=== PATIENT | male | born 1955 | race Caucasian/White ===

== ENCOUNTER → 2023-11-20 10:52 | Outpatient (REF) | payer MEDICARE, SELFPAY | LOC: HWRAD 10:52 | PROVIDERS: ATTENDING PHYSICIAN Internal Medicine Geriatric Medicine | DX: Z12.11 Encounter for screening for malignant neoplasm of colon (principal) | CPT/HCPCS: 74261 ==

== ENCOUNTER 2024-12-04 13:02 | Inpatient (IN) | payer MEDICARE, SELFPAY ==
[2024-12-04] VITALS (30 sets, daily range): BP systolic 89–120; BP diastolic 67–99; BMI 37.8
--- NOTE | 2024-12-04 10:23 | ED.GENMED ---
History of Present Illness
General
Chief Complaint: Breathing Problem
Time Seen by Provider: 12/04/24 10:07
History of Present Illness
History of Present Illness:
68-year-old male who presents to the emergency department for evaluation of heart palpitations and shortness of breath ongoing for the past week. Symptoms seem to be worsening and he notes that he cannot lay flat or on his left side. Denies any
chest pain. No fevers or chills. No prior cardiac history, notes that prior to undergoing orthopedic surgery in April he had a stress test performed in [facility] that was unremarkable. Denies any recent fevers or chills. Denies leg edema
Past History
Past History
ED Past Medical History: None
Social History
Tobacco: Non-smoker
Personal:
Living: with family
Employment: Employed
Review of Systems
Review of Systems
Allergies reviewed?: Yes
All Other Systems: ROS reviewed and negative except as documented in HPI and ROS
Phy Exam
Physical Exam
Physical Exam:
GEN: Well appearing, NAD, WDWN
Eyes: PERRLA, EOMs intact, no scleral icterus
HENT: NCAT, oral mucosa moist, no JVD
Lungs: Mildly tachypneic, no respiratory distress, grossly diminished right breath sounds
Cardiac: Markedly tachycardic and irregular, no murmur
Abdomen: S, NT, ND, NABS, no masses or hepatosplenomegaly
Neuro: AO x 3
MSK: No gross deformity or ecchymosis. No edema. No digital clubbing
Skin: No rashes, petechiae. Normal color, no pallor or jaundice.
Psych: Calm, cooperative, proper hygiene
Scores
Heart Failure Risk
Heart Failure Risk Score: Not Applicable
Course
Orders/Labs/Results
Orders:
Orders
12/04/24 10:00
Electrocardiogram (*1) Urgent
Reason for Study: Shortness of Breath
EKG- Treatment ONCE
12/04/24 10:18
Complete Blood Count/With Diff Urgent
Comprehensive Metabolic Panel Urgent
Magnesium Urgent
Comment: ADD ON
NT-proBNP Urgent
Comment: ADD ON
TSH Reflex To Free T4 Urgent
Comment: ADD ON
Troponin I Urgent
12/04/24 10:20
Add On- LAB Urgent
Tests Added?: BNP
Diltiazem HCl [Cardizem] 25 mg IV NOW STA
CR Chest Portable - 1 View Urgent
Comment:
Reason For Exam: SOB
Reason Study Needs to be Portable: Patient Unstable
12/04/24 10:24
PTT Urgent
Prothrombin Time Urgent
12/04/24 10:30
Diltiazem 125 mg/125 ml Nss [Cardizem] 125 mg in 125 ml IV PER PROTOCOL
Initial dose in mg/hr, then titrate:: 5
Titrate to keep:: Heart rate 80-100 bpm
Titrate by mg/hr:: 5 mg/hr
Frequency of titrations (minutes):: 15
Maximum dose in mg/hr:: 15
12/04/24 10:45
Add On- LAB Urgent
Tests Added?: magnesium, TSH w reflex
12/04/24 11:42
Heparin 4,000 units IV NOW STA
12/04/24 11:[address] Non Medication Order As Directed
Physician Order: PTT 6 hours after initial start of Heparin infusion
Above order entered?: Yes
12/04/24 11:45
Heparin 67010 Units/250 ml 25,000 units in 250 ml IV PER PROTOCOL
Weight to be used for heparin protocol in kilograms (kg):: 129.8
Protocol:: Cardiac Tx/Acute Coronary
PTT Goal Range to be used:: PTT 73 to 111 seconds
Order type:: Initial
INITIAL Infusion Dose (UNITS/KG/hr) & then follow protocol:: 15 units/kg/hr
Infusion Dose in UNITS/hr & then follow protocol (UNITS/hr):: 1,500
INFUSION RATE in mL/hr & then follow protocol (mL/hr):: 15
PTT less than or equal to 64 seconds:: Increase rate by 200 units/hr (+ 2 mL/hr)
PTT 64.1 to 72.9 seconds:: Increase rate by 100 units/hr (+ 1 mL/hr)
PTT 73 to 111 seconds:: Target Range. No change in rate.
PTT 111.1 to 130.9 seconds:: Decrease rate by 100 units/hr (- 1 mL/hr)
PTT 131 to 199.9 seconds:: HOLD for 1 hr. Then decrease rate by 200 units/hr (- 2 mL/hr)
PTT greater than or equal to 200 seconds:: HOLD for 2 hrs & Notify Provider. Then decrease by 200 units/hr (-
2 mL/hr)
Lab follow-up:: Each change, PTT q6h until 2 consecutive are therapeutic. Then PTT
daily.
12/04/24 12:24
Admit/Transfer Patient As Directed
Co-Sign Provider:
Level of Care: Inpatient admission
Assign to:: IMU- Intermediate Care
Physician / Group: deborahy
Diagnosis: New onset fast AF, R pleura effusion
Reason for Hospitalization: New onset fast AF, R pleura effusion
Expected length of stay greater than two midnights?: Yes
ELOS- Estimated Length of Stay in days: 3
I certify the patient meets the requirements for IP care: Yes
12/04/24 12:28
Code Status As Directed
Resuscitation Status: Full Code
Abnormal Lab Results
12/04/24
10:18
MPV 11.3 H fL
(7.4-10.4)
Absolute Monos (auto) 0.9 H 10^3/uL
(0.1-0.6)
Monocytes % 9.7 H %
(1.7-9.3)
Glucose 139 H mg/dl
(70-99)
Total Bilirubin 1.9 H mg/dl
(0.2-1.3)
12/04/24 10:18
12/04/24 10:18
Vital Signs
Initial and Last Documented VS:
Initial Vital Signs
Temp Pulse Resp BP Pulse Ox
98.2 F 66 16 112/84 97
12/04/24 09:57 12/04/24 09:57 12/04/24 09:57 12/04/24 09:57 12/04/24 09:57
Last Documented Vital Signs
Temp Pulse Resp BP Pulse Ox
98.2 F 134 23 89/75 93
12/04/24 09:57 12/04/24 11:45 12/04/24 11:45 12/04/24 11:30 12/04/24 11:45
MDM/Problems Addressed
MDM/Problems Addressed:
68-year-old male presenting with shortness of breath and palpitations found to have rapid atrial fibrillation with signs of CHF evidenced by mild lower extremity edema and a moderate right pleural effusion. He was started on IV rate control with
modest improvement however blood pressure was tenuous, patient daisy stable during this time. He has no chest pain to suggest ACS. Ultimately given A-fib with signs of heart failure he will require hospitalization for further rate control and
thoracentesis, opted for heparinization as opposed to oral anticoagulants given anticipation of upcoming procedure.
Comment
Comment:
EKG independently interpreted by me shows a rapid atrial fibrillation at a rate of [address] depressions more prominent laterally
*Pulse Oximetry
SaO2: 97
Oxygen Mode of Delivery: Room air
Patient hypoxic: no
*Critical Care Note
Total Time (30-74mins, 75-104mins- exclusive of procedures): 45 minutes
comment:
Critical care time: 45 minutes
Critical care time was exclusive of: Separately billable procedures, treating other patients, and teaching time
Critical care was necessary to treat or prevent imminent or life-threatening deterioration of the following conditions: Rapid A-fib/CHF
Critical care time spent personally by me on the following activities:
[x] Review of old charts
[x] Obtaining history from patient or surrogate
[x] Ordering and review of the laboratory studies
[x] Ordering and review of radiographic studies
[x] Ordering and performing treatments and interventions
[x] Patient patient's response to treatment
[x] Development of treatment plan with patient or surrogate
ED Attending Note
-
Portions of this chart may have been created with voice recognition software.� Occasional wrong word or��sound alike� substitutions may have occurred due to the inherent limitations of voice recognition software.
Discharge Plan
Departure
Patient Disposition: Admit
Date of Disposition: 12/04/24
Time of Disposition: 11:43
Admit to: IMU
Presentation/result/management discussed w/ accepting MD/DO: Hospitalist
Discharge Problem:
Atrial fibrillation with RVR, Pleural effusion
Interventions
Interventions:
*Risk Screen - Suicide Last Done: 12/04/24 09:59
*Neglect/Abuse Screening Last Done: 12/04/24 09:59
ED- Cardiac Assessment Last Done: 12/04/24 10:49
ED- Pulmonary Assessment Last Done: 12/04/24 10:49
[2024-12-04] MEDS: CARDIZEM 25 MG IV (10:27)
[2024-12-04 10:40] LABS: ALT (SGPT) 36 U/L (0-50); AST (SGOT) 38 U/L (17-59); Albumin 4.7 g/dl (3.5-5.0); Alkaline Phosphatase 98 U/L (38-126); Blood Urea Nitrogen 19 mg/dl (9-20); Calcium 9.7 mg/dl (8.4-10.2); Carbon Dioxide 23 mmol/L (22-30); Chloride 107 mmol/L (98-107); Glucose 139 mg/dl (70-99); Potassium 4.7 mmol/L (3.5-5.1); Total Protein 7.3 g/dl (6.3-8.2); eGFR > 60.00
[2024-12-04] MEDS: CARDIZEM 125 IV ×2 (10:41→20:00)
[2024-12-04 10:43] LABS: Hematocrit 51.1 % (39.0-52.0); Hemoglobin 16.9 g/dL (13.0-18.0); Mean Corp Hgb Conc. 33.1 g/dL (33.0-37.0); Mean Corpuscular Volume 85.5 fL (80.0-94.0); Nucleated Red Blood Cells % 0 % (-); Platelet Count 358 10^3/uL (130-400); Red Cell Dist. Width 13.5 % (11.5-14.5)
[2024-12-04 10:44] LABS: INR 1.07; PT 14.4 Sec (11.4-14.6)
[2024-12-04 10:45] LABS: Sodium 140 mmol/L (135-145)
[2024-12-04 10:45] LABS: APTT 29.5 Sec (23.4-35.0)
[2024-12-04 10:58] LABS: Troponin I 0.015 ng/ml
[2024-12-04 11:08] LABS: Magnesium 2.1 mg/dl (1.6-2.3)
--- NOTE | 2024-12-04 12:14 | HPS.HSE ---
Family Physician
-
Family Physician: Gregory Macias
Chief Complaint
-
palpitation and sob
History of Present Illness
68M HX HTN sen at ER:
- no prior visit to
- for evaluation of heart palpitations and shortness of breath ongoing for the past week.
- Symptoms seem to be worsening and he notes that he cannot lay flat or on his left side.
- No prior cardiac history,
- reports prior to undergoing orthopedic surgery in April he had a stress test performed in [facility] that was unremarkable.
- Denies any chest pain.
- No fevers or chills. Denies any recent fevers or chills. Denies leg edema
Medical History
Past Medical History
Past Medical History: Reports HTN
Additional Past Medical History:
Reports unremarkable preop stress test in April 2024 in [facility]
Past Surgical History: Reports Orthopedic
Social History
Tobacco: Non-smoker
Alcohol: Other (reports not more than socially, and drinks less and less )
Personal:
Living: With Family
Family History
Family History: Not pertinent
Allergies / Home Medications
Allergies reflects when Allergies were last updated in [employer]
Home Medications with original date entered in [employer]
Allergy/Medication List:
Allergies
Allergy/AdvReac Type Severity Reaction Status Date / Time
No Known Allergies Allergy Verified 10/13/13 15:36
Home Medications
amlodipine 5 mg tablet (Norvasc) 5 mg PO DAILY 12/04/24
aspirin 81 mg tablet,delayed release 81 mg PO DAILYPRN PRN chest pains 12/04/24
tadalafil 5 mg tablet 5 mg PO DAILY 12/04/24
Review of Systems
-
Constitutional: Reports No Symptoms
EENT: Reports No Symptoms
Respiratory: Reports Trouble Breathing (when lying on the Lt )
Cardiac: Reports Palpitations
Abdomen/GI: Reports No Symptoms
: Reports No Symptoms
Musculoskeletal: Reports No Symptoms
Skin: Reports No Symptoms
Neurological: Reports No Symptoms
Endocrine: Reports No Symptoms
Hematologic/Lymphatic: Reports No Symptoms
Psych: Reports No Symptoms
Physical Exam
Vital Signs
Vital Signs
Temp Pulse Resp BP Pulse Ox
98.2 F 134 23 89/75 93
12/04/24 09:57 12/04/24 11:45 12/04/24 11:45 12/04/24 11:30 12/04/24 11:45
Physical Exam
General: Well Developed, Well Nourished and No Apparent Distress
HEENT: NormoCephalic, Moist mucous membranes and Atraumatic
Respiratory: Other (Mildly tachypneic, no respiratory distress, grossly diminished right breath sounds)
Cardiac: S1/S2, Irregular Rhythm and Tachycardia; No Murmur or Rub
GI: Soft, Non Tender, Non Distended and Normal Bowel Sounds; No Organomegaly
Rectal: Deferred by Provider
Musculoskeletal: No Clubbing, No Cyanosis and No Edema
Skin: No Rash
Neuro: Nonfocal/grossly intact
Psych: Calm and Intact Judgment/Insight
Laboratory Results
-
12/04/24 10:18
12/04/24 10:18
Laboratory Results
PT 14.4 Sec (11.4-14.6) 12/04/24 10:24
INR 1.07 12/04/24 10:24
APTT 29.5 Sec (23.4-35.0) 12/04/24 10:24
Total Bilirubin 1.9 mg/dl (0.2-1.3) H 12/04/24 10:18
AST 38 U/L (17-59) 12/04/24 10:18
ALT 36 U/L (0-50) 12/04/24 10:18
Alkaline Phosphatase 98 U/L (38-126) 12/04/24 10:18
Troponin I 0.015 ng/ml 12/04/24 10:18
Data Reviewed
-
Diagnostic Radiology: Report Reviewed by me
Medical Tests (Nuc Med, Echo, EKG etc): Report Reviewed by me
Lab Data: Labs Reviewed by me
Impression/Plan
-
Relevant data
Unremarkable CBC
Nl Cr, nl eGFR
INR1.0
TB 1.9
Pending TSH
CXR
- Low lung volumes
- small to moderate right-sided pleural effusion
- some adjacent airspace consolidation/atelectasis.
- Top normal to mildly enlarged heart.
EKG
ATRIAL FIBRILLATION WITH RAPID VENTRICULAR RESPONSE
LEFT ANTERIOR FASCICULAR BLOCK
NONSPECIFIC ST AND T WAVE ABNORMALITY
ABNORMAL ECG
NO PREVIOUS ECGS AVAILABLE
Confirmed by MD YEIMI, PROSPER Loredo ([id number]) on 12/04/2024 10:35:55 AM
Last hospitalist admission:
ASSESSMENT & PLAN
New onset Fast AF with VR 110-125
- BP borderline at 90/75
- appears stable clinically however.
- Hold Amlodipine
- agree with Cardizem gtt to titrate
- agree with Heparin gtt
- on ASA will cont.
- TSH
- ECHO
- CBC card consult
Moderate R pleural effusion
some adjacent airspace consolidation/atelectasis
- afebrile & normal WCC - low suspicion for PNAupon admission
- suspect symptomatic
- proBNP
- will need thoracentesis ( Dxtic and Rxtic )
Currently borderline hypotension
Benign HTN
- Hold Amlodipine
Elevated TB and nl INR
- suspect passive hepatic venous congestion due to ? CHF
- To eval for acute CHF - await pro BNP asnd ECHO
DVT Px: on Heparin gtt
Full code
IMU
[2024-12-04] MEDS: HEPARIN 4000 UNITS IV (12:54)
[2024-12-04] MEDS: HEPARIN 25000 UNITS/250 ML IV (13:02)
--- NOTE | 2024-12-04 13:20 | CON.CAR ---
Addendum entered and electronically signed by Delbert Crisostomo MD 12/04/24 17:37:
I saw and examined the patient.
The ROOFER VINYL COATING's note was reviewed and I agree with the note.
Comment: JOHN ANAYA DCCV in AM, NPO after midngiht, TSH normal
Original Note:
Consultation
Consultation Request
Date/Time Consultation Requested: 12/04/24 1309
Date/Time Consultation Performed: 12/04/24 1330
Requesting Provider: Dr. Gresham
Performing Provider: Ann Marie VEGA for Dr. Crisostomo
Reason for Consultation: AFIB
Medical History
-
Chief Complaint: SOB, palps
History of Present Illness:
68 y/o male with hypertension who is here for evaluation SOB for several weeks, which has been getting progressively worse. Worse with exertion, and laying flat. He felt palpitations overnight. He is seen to have AFIB with RVR and is ordered
diltiazem and heparin drips. He has a right pleural effusion and is ordered for a thoracentesis (diagnostic and therapeutic). He is in no distress at the time of my assessment.
Past Medical History
Past Medical History: HTN
Social History
Tobacco: Former Smoker
Alcohol: Occasional
Drug: None
Family History
Family History: Reviewed & Not Pertinent
Allergies / Home Medications
Allergy/AdvReac Type Severity Reaction Status Date / Time
No Known Allergies Allergy Verified 10/13/13 15:36
�Medication �Instructions �Recorded �Confirmed �Type
amlodipine 5 mg tablet (Norvasc) 5 mg PO DAILY 12/04/24 12/04/24 History
aspirin 81 mg tablet,delayed 81 mg PO DAILYPRN PRN chest pains 12/04/24 12/04/24 History
release
tadalafil 5 mg tablet 5 mg PO DAILY 12/04/24 12/04/24 History
Review of Systems
-
History Source: Patient
All other systems: Negative unless noted
Respiratory: Trouble Breathing
Cardiac: Palpitations
Physical Exam
Vital Signs
Temp Pulse Resp BP Pulse Ox
98.2 F 134 23 89/75 93
12/04/24 09:57 12/04/24 11:45 12/04/24 11:45 12/04/24 11:30 12/04/24 11:45
Lab Results
12/04/24 10:18
12/04/24 10:18
Troponin I 0.015 ng/ml 12/04/24 10:18
Tir-F-Qudnfspuhzt Pept 2800 pg/ml 12/04/24 10:18
Physical Exam
General: Well Developed, Well Nourished and No Apparent Distress
HEENT: Normocephalic and Anicteric
Respiratory: Other (diminished to right base)
Cardiac: Irregular Rhythm
Musculoskeletal: No Edema
Skin: Warm and Dry
Neuro: AO x 3
Psych: Calm
Impression / Plan
-
AFIB with RVR:
-continue IV diltiazem, which requires intensive monitoring. Most recent SBP 111 mmHg.
-plan for JOHN/CV in AM- discussed with patient
-[id number] score is at least 2 for age and HTN. Continue IV heparin, which requires intensive monitoring. Transition to [facility] prior to d/c- check pricing with .
-echo ordered, needs sleep study as OP
-TSH WNL
Right pleural effusion:
-thoracentesis is planned (diagnostic/therapeutic).
HTN:
-replace amlodipine with diltiazem
-monitor on drip
Data Reviewed
-
EKG: Tracing Personally Visualized and interpreted (AFIB with RVR 157 BPM, non specific ST/T abnormality)
Radiology: Report Reviewed by me (CXR: Low lung volumes with small to moderate right-sided pleural effusion with some adjacent airspace consolidation/atelectasis. Top normal to mildly enlarged heart.)
Medical Tests (Nuc Med, Echo etc): Other (echo ordered)
Labs: Labs Reviewed by me
[2024-12-04 20:02] LABS: Hematocrit 46.9 % (39.0-52.0)
[2024-12-04 20:12] LABS: APTT 80.9 Sec (23.4-35.0)
[2024-12-04 20:47] LABS: Glucose 161 mg/dl (70-99); LDH 226 U/L (120-246); Total Protein 6.8 g/dl (6.3-8.2)
[2024-12-05] VITALS (17 sets, daily range): BP systolic 90–118; BP diastolic 73–93; BMI 35.1
[2024-12-05 03:09] LABS: Hematocrit 43.0 % (39.0-52.0); Hemoglobin 14.5 g/dL (13.0-18.0); Mean Corp Hgb Conc. 33.7 g/dL (33.0-37.0); Mean Corpuscular Volume 84.3 fL (80.0-94.0); Platelet Count 254 10^3/uL (130-400); Red Cell Dist. Width 13.4 % (11.5-14.5)
[2024-12-05 03:23] LABS: APTT 72.6 Sec (23.4-35.0)
[2024-12-05 03:28] LABS: Blood Urea Nitrogen 21 mg/dl (9-20); Calcium 9.1 mg/dl (8.4-10.2); Carbon Dioxide 23 mmol/L (22-30); Chloride 111 mmol/L (98-107); Estimated Creatinine Clearance 111 ml/min; Glucose 115 mg/dl (70-99); HDL Cholesterol 35 mg/dl; LDL Cholesterol, Calculated 83 mg/dl; Potassium 3.9 mmol/L (3.5-5.1); Sodium 138 mmol/L (135-145); Very Low Density Lipoprotein 20 mg/dl (0-30); eGFR > 60.00
[2024-12-05] MEDS: CARDIZEM 125 IV ×3 (03:49→20:55)
[2024-12-05] MEDS: HEPARIN 25000 UNITS/250 ML IV ×2 (05:15→21:40)
--- NOTE | 2024-12-05 08:15 | W.PN.CD ---
Today's Communication / Plan
-
Patient scheduled for thoracentesis this morning
Will need to make sure he does okay with this procedure. Will hold off on JOHN cardioversion this morning. -plan for JOHN/CV this admission. Patient getting thoracentesis earlier this morning so we will be holding off on JOHN cardioversion. This
was reviewed with primary team and reviewed with team performing JOHN today and plan will be thoracentesis today with JOHN cardioversion tomorrow
If patient does well with thoracentesis then can transition from IV heparin to Eliquis 5 mg twice daily. Will need to have case management check cost
Also can transition IV Cardizem to oral
Impression / Plan
-
AFIB with RVR:
-continue IV diltiazem, which requires intensive monitoring. Most recent SBP 111 mmHg.
-plan for JOHN/CV this admission. Patient getting thoracentesis earlier this morning so we will be holding off on JOHN cardioversion. This was reviewed with primary team and reviewed with team performing JOHN today and plan will be thoracentesis
today with JOHN cardioversion tomorrow
-[id number] score is at least 2 for age and HTN. Continue IV heparin, which requires intensive monitoring. Transition to Eliquis prior to d/c- check pricing with .
-echo ordered, needs sleep study as OP
-TSH WNL
Right pleural effusion:
-thoracentesis is planned (diagnostic/therapeutic).
HTN:
-replace amlodipine with diltiazem
-monitor on drip
Physical Exam
Vital Signs/Labs
Vital Signs
Temp Pulse Resp BP Pulse Ox
97.8 F 85 17 110/79 90
12/04/24 16:30 12/05/24 07:30 12/05/24 07:30 12/05/24 07:01 12/05/24 00:15
12/04/24 12/05/24 12/06/24
06:59 06:59 06:59
Actual Weight 130 kg
12/05/24 02:58
12/05/24 02:58
PT Cancelled 12/04/24 19:10
INR Cancelled 12/04/24 19:10
APTT 72.6 Sec (23.4-35.0) H 12/05/24 02:58
Magnesium 2.1 mg/dl (1.6-2.3) 12/04/24 10:18
Triglycerides 100 mg/dl (10-149) 12/05/24 02:58
LDL Cholesterol, Calc 83 mg/dl 12/05/24 02:58
VLDL Cholesterol, Calc 20 mg/dl (0-30) 12/05/24 02:58
HDL Cholesterol 35 mg/dl 12/05/24 02:58
12/04/24
10:18
Dvp-U-Mptvyhwvouc Pept 2800
LAB Results
12/04/24
10:18
Troponin I 0.015
Physical Exam
Constitutional: No acute distress
Cardiovascular: Rhythm/rate is irregular
Respiratory: Respiratory effort normal
GI: Soft
Neuro/Psych: Alert
Data Reviewed
-
Date of Service: December 05, 2024
Medical Decision Making: Reviewed Test Results
X-Ray/CT/US/MRI/NUC/PET: Report Reviewed by me
Medical Tests (PFT, Pathology etc): Report Reviewed by me
Labs: Labs Reviewed by me
[2024-12-05 09:46] LABS: APTT 106.4 Sec (23.4-35.0)
[2024-12-05 10:40] LABS: Body Fluid Second Tech SS
--- NOTE | 2024-12-05 12:34 | CM ---
Met with patient and spouse at bedside in the ED; CM consult completed
Pharmacy verified: [facility] @ [id number] [facility], [place], [place]
Patient and spouse live in a multilevel home; 2 steps to enter; 15 steps to 2nd floor bed and bath; railing on stairs; powder room 1st floor
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
No DME
No SNF utilization history; home PT after knee replacement 2023
Eliquis coupon for 30 day free trial provided (Attending notified and made aware that patient does not have medication coverage)
Drove self to hospital; will transport home if driving is restricted at time of discharge
Plan: discharge to home when medically stable; Trading Floor Operator will monitor for discharge needs
--- NOTE | 2024-12-05 12:51 | CARDSERVDEF ---
Echocardiogram with Definity completed after protocol screening completed. Allergies verified.
Patent IV site: _Right arm 20 G PC____
IV site flushed with 0.9% NaCl pre and post administration.
Diluted bolus method utilized to enhance visualization of ventricular patton.
Total volume given: __2.5__ mL
Patient tolerated all procedures well without complications.
--- NOTE | 2024-12-05 13:18 | W.PN.HOSP.TC ---
Today's Communication/Plan
-
thora
cardioversion tomorrow
cont dilt ggt, hep ggt
Assessment / Plan
Assessment / Plan
Physical Exam
General: Well Developed, Well Nourished and No Apparent Distress
HEENT: NormoCephalic, Moist mucous membranes and Atraumatic
Respirator NAD
Cardiac: S1/S2, Irregular Rhythm and Tachycardia; No Murmur or Rub
GI: Soft, Non Tender, Non Distended and Normal Bowel Sounds; No Organomegaly
Rectal: Deferred by Provider
Musculoskeletal: No Clubbing, No Cyanosis and No Edema
Skin: No Rash
Neuro: Nonfocal/grossly intact
Psych: Calm and Intact Judgment/Insight
Afib with RVR
-Cont Dilt ggt
-Hep ggt
- Hold Amlodipine
- on ASA will cont.
- TSH WNL
- ECHO
- Tentative cardioversion tomorrow am
Moderate R pleural effusion
some adjacent airspace consolidation/atelectasis
- suspect 2/2 to afib
-Lights indicates most likely transudative effusion
-afebrile & normal WCC - low suspicion for PNAupon admission
- suspect symptomatic
- improved with thora
-F/u ECHO
Currently borderline hypotension
Benign HTN
- Hold Amlodipine
Elevated Total bili
-mild, alp WNL
-no ruq pain
-most likely gilberts
-cont to trend
DVT Px: on Heparin gtt
Total time spent on today's encounter was 51 minutes which included time spent in counseling the patient/family regarding diagnosis and treatment plan as listed above, goals of care, and symptom management. Case was discussed with nursing staff,
specialists, and care coordinators/case management. All labs and imaging personally reviewed by me. Remainder the time spent in detailed review of previous records, lab data, imaging, and other medical provider documentation.
Anticipated Discharge: Today
Subjective/Interval History
-
Date of Service: December 05, 2024
respiratory status greatly improved s/p thora
Objective Data
-
Labs:
Laboratory Results
12/05/24 12/05/24 12/05/24
02:58 09:12 15:12
WBC 7.0
Hgb 14.5
Hct 43.0
Plt Count 254 D
APTT 72.6 H 106.4 H Pending
Sodium 138
Potassium 3.9
Chloride 111 H
Carbon Dioxide 23
BUN 21 H
Creatinine 0.9
Glucose 115 H
Calcium 9.1
Vital Signs:
Vital Signs
Temp Pulse Resp BP Pulse Ox
97.5 F 95 28 109/88 93
12/05/24 11:17 12/05/24 11:17 12/05/24 11:17 12/05/24 11:17 12/05/24 11:17
I&O
12/04/24 12/05/24 12/06/24
06:59 06:59 06:59
Intake Total 362 / 362
Output Total 600 / 600
Balance -238 / -238
Review of Systems
-
History Source: Patient
All other systems: Not reviewed unless documented
Data Reviewed
-
Diagnostic Radiology: Report Reviewed by me
Labs: Labs Reviewed by me
--- NOTE | 2024-12-05 13:45 | PTCARENOTE ---
Verbal report called to Arthur Prakash from IMU. awaiting clean bed. plan of care continues to be followed.
[2024-12-05 15:37] LABS: APTT 99.6 Sec (23.4-35.0)
--- NOTE | 2024-12-05 16:52 | W.PN.UPDATE ---
Addendum entered and electronically signed by Benjie Maynard MD 12/05/24 17:10:
Spoke with the brand engineer that the patient saw in [place]. Dr. Luciano Garrett. Patient had a normal echocardiogram 12/2024 normal left ventricular function and no significant valvular disease. Patient also had a Lexiscan nuclear perfusion stress
test with no nuclear perfusion evidence of ischemia and normal left ventricular function. Copy of reports being faxed
Original Note:
Update Note
Progress Note Update
echo with EF 25%. reviewed results with him. We discussed assessment for CAD Including cath vs noninvasice testing. reports normal echo and pharmachologic stress in [place] before he had knee surgery. Mónicaetn may ahve tachycardia induced cardiomyopathy
. Will obtain piror results . if he has had recent testing without CAD and normal LVF then we may not need to repeat evaluation for CAD. patient obtaining results.
--- NOTE | 2024-12-05 17:16 | PTCARENOTE ---
Pt arrived from ED. remains on Hep drip 1600 units, cardizem drip at 15mg/hr. Pt educated on NPO status after midnight for cardioversion tomorrow. AAO x3, stable on his feet
[2024-12-06] VITALS (15 sets, daily range): BP systolic 97–118; BP diastolic 56–89; BMI 35.1
[2024-12-06 06:28] LABS: Hematocrit 47.6 % (39.0-52.0); Hemoglobin 15.8 g/dL (13.0-18.0); Mean Corp Hgb Conc. 33.2 g/dL (33.0-37.0); Mean Corpuscular Volume 85.8 fL (80.0-94.0); Platelet Count 292 10^3/uL (130-400); Red Cell Dist. Width 13.2 % (11.5-14.5)
[2024-12-06 06:39] LABS: APTT 82.7 Sec (23.4-35.0)
[2024-12-06 06:56] LABS: ALT (SGPT) 28 U/L (0-50); AST (SGOT) 31 U/L (17-59); Albumin 4.4 g/dl (3.5-5.0); Alkaline Phosphatase 92 U/L (38-126); Blood Urea Nitrogen 17 mg/dl (9-20); Calcium 9.1 mg/dl (8.4-10.2); Carbon Dioxide 20 mmol/L (22-30); Chloride 107 mmol/L (98-107); Estimated Creatinine Clearance 96 ml/min; Glucose 128 mg/dl (70-99); Magnesium 2.1 mg/dl (1.6-2.3); Potassium 4.0 mmol/L (3.5-5.1); Sodium 139 mmol/L (135-145); Total Protein 6.9 g/dl (6.3-8.2); eGFR > 60.00
--- NOTE | 2024-12-06 07:18 | PTCARENOTE ---
No acute changes overnight. Denies any pain. Pt reports breathing improved since admission. No gi/gu complaints. NPO at [facility] this morning. Pt aware of procedures today; education provided on Heart cath/ JOHN/ CV. Call pope and tray table within
reach. pt calls appropriately.
[2024-12-06] MEDS: ELIQUIS 5 MG PO (08:25)
[2024-12-06] MEDS: CARDIZEM 125 IV (08:25)
--- NOTE | 2024-12-06 11:04 | PTCARENOTE ---
NPO status maintained, voided housing relocation. CHG bathed self. Remains in AF on tele rates 90s on IV Cardizem at 15mg/hr. To electrical laboratory technician via lucas sorensen/ [facility].
--- NOTE | 2024-12-06 12:18 | CM ---
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
--- NOTE | 2024-12-06 12:39 | W.PN.CD ---
Today's Communication / Plan
-
start Toprol XL and dabigatran
monitor BP post DCCV
Impression / Plan
-
AFIB with RVR: new
-back in sinus after DCCV
-now on Toprol
-CHADS2-VASC = 3. Dabigatran 150mg bid for OAC.
Cardiomyopathy, new, EF 20-25%
-recent stress with no ischemia
-likely tachy induced from A fib
-starting on Toprol XL
-meds will be limited by low BP and lack of prescription coverage
Moderate MR
HTN:
-BP now running low
-monitor on Torpol XL
Physical Exam
Vital Signs/Labs
Vital Signs
Temp Pulse Resp BP Pulse Ox
98.1 F 101 18 98/78 96
12/06/24 08:59 12/06/24 10:00 12/05/24 20:00 12/06/24 10:00 12/06/24 08:25
12/05/24 12/06/24 12/07/24
06:59 06:59 06:59
Actual Weight 130 kg 120.5 kg
12/06/24 06:07
12/06/24 06:07
PT Cancelled 12/04/24 19:10
INR Cancelled 12/04/24 19:10
APTT 82.7 Sec (23.4-35.0) H 12/06/24 06:07
Magnesium 2.1 mg/dl (1.6-2.3) 12/06/24 06:07
Triglycerides 100 mg/dl (10-149) 12/05/24 02:58
LDL Cholesterol, Calc 83 mg/dl 12/05/24 02:58
VLDL Cholesterol, Calc 20 mg/dl (0-30) 12/05/24 02:58
HDL Cholesterol 35 mg/dl 12/05/24 02:58
12/04/24
10:18
Iao-M-Oisbhxbgsqj Pept 2800
LAB Results
12/04/24
10:18
Troponin I 0.015
Physical Exam
Constitutional: No acute distress and Comfortable
EENT: Moist mucous membranes
Cardiovascular: Pedal edema is absent, JVD pressure is normal, Rhythm/rate is irregular and Systolic murmur present
Respiratory: Respiratory effort normal and Lungs clear to auscul.
Neuro/Psych: AO x 3
Data Reviewed
-
Date of Service: December 06, 2024
EKG: Other (Tele: A fib with RVR)
Labs: Labs Reviewed by me
--- NOTE | 2024-12-06 13:34 | PTCARENOTE ---
Returned from lab courier, ambulated to bed. BP 109/79 NSR 77 on tele. 98% on RAIR. Denies pain. IV Cardizem gtt was discontinued in procedure.
--- NOTE | 2024-12-06 14:43 | W.PN.HOSP.TC ---
Today's Communication/Plan
-
possible DC today after cardioversion
pradaxa
toprol
f/u cards, pcp outpatient
f/u bmp, cbc in 1 week
Assessment / Plan
Assessment / Plan
Physical Exam
General: Well Developed, Well Nourished and No Apparent Distress
HEENT: NormoCephalic, Moist mucous membranes and Atraumatic
Respirator NAD
Cardiac: S1/S2, Irregular Rhythm and Tachycardia; No Murmur or Rub
GI: Soft, Non Tender, Non Distended and Normal Bowel Sounds; No Organomegaly
Rectal: Deferred by Provider
Musculoskeletal: No Clubbing, No Cyanosis and No Edema
Skin: No Rash
Neuro: Nonfocal/grossly intact
Psych: Calm and Intact Judgment/Insight
Afib with RVR
-Cont Dilt ggt
-Hep ggt - Pradaxa on DC - 150mg bid for OAC.
- Hold Amlodipine
- on ASA will cont.
- TSH WNL
- ECHO - EF 25% - as per records - nuclear stress test negative
- Tentative cardioversion today
Moderate R pleural effusion
some adjacent airspace consolidation/atelectasis
Acute on Chronic HFrEF - EF 25%
-As per records - patient has known EF with nuclear stress test negative
-possibly related to tachycardia
-should benefit from repeat echo outpt
-Lights indicates most likely transudative effusion
-afebrile & normal WCC - low suspicion for PNAupon admission
- improved with thora
-Toprol
Currently borderline hypotension
Benign HTN
- Hold Amlodipine
Elevated Total bili
-mild, alp WNL
-no ruq pain
-most likely gilberts
-cont to trend
DVT Px: Pradaxa
More than 30 minutes spent in discharge including
Final examination of the patient
Summarizing hospital stay
Instructions for continuing care to all relevant caregivers
Preparation of discharge records, prescriptions, and referral forms
Total time spent (in minutes): 36
Anticipated Discharge: Today
Subjective/Interval History
-
Date of Service: December 06, 2024
Cardioversion
Objective Data
-
Labs:
Laboratory Results
12/06/24
06:07
WBC 10.5
Hgb 15.8
Hct 47.6
Plt Count 292
APTT 82.7 H
Sodium 139
Potassium 4.0
Chloride 107
Carbon Dioxide 20 L
BUN 17
Creatinine 1.0
Glucose 128 H
Calcium 9.1
Total Bilirubin 1.9 H
AST 31
ALT 28
Alkaline Phosphatase 92
Vital Signs:
Vital Signs
Temp Pulse Resp BP Pulse Ox
98.1 F 72 18 109/79 98
12/06/24 08:59 12/06/24 13:24 12/06/24 13:24 12/06/24 13:24 12/06/24 13:24
I&O
12/05/24 12/06/24 12/07/24
06:59 06:59 06:59
Intake Total 562 / 562
Output Total 600 / 600
Balance -38 / -38
Review of Systems
-
History Source: Patient
All other systems: Not reviewed unless documented
Data Reviewed
-
Diagnostic Radiology: Report Reviewed by me
Labs: Labs Reviewed by me
--- NOTE | 2024-12-06 19:10 | PTCARENOTE ---
Remains in NSR 70s. Tolerating po diet. Allowing to move around in room/ bathroom on own.
[2024-12-06] MEDS: PRADAXA 150 MG PO (19:46)
[2024-12-06] MEDS: TOPROL XL 25 MG PO (19:47)
[2024-12-07 03:33] LABS: Hematocrit 41.8 % (39.0-52.0); Hemoglobin 14.0 g/dL (13.0-18.0); Mean Corp Hgb Conc. 33.5 g/dL (33.0-37.0); Mean Corpuscular Volume 84.8 fL (80.0-94.0); Platelet Count 245 10^3/uL (130-400); Red Cell Dist. Width 13.4 % (11.5-14.5)
[2024-12-07 03:58] LABS: ALT (SGPT) 23 U/L (0-50); AST (SGOT) 26 U/L (17-59); Albumin 3.5 g/dl (3.5-5.0); Alkaline Phosphatase 73 U/L (38-126); Blood Urea Nitrogen 14 mg/dl (9-20); Calcium 8.5 mg/dl (8.4-10.2); Carbon Dioxide 23 mmol/L (22-30); Chloride 112 mmol/L (98-107); Estimated Creatinine Clearance 107 ml/min; Glucose 110 mg/dl (70-99); Magnesium 2.1 mg/dl (1.6-2.3); Potassium 4.1 mmol/L (3.5-5.1); Sodium 139 mmol/L (135-145); Total Protein 5.8 g/dl (6.3-8.2); eGFR > 60.00
[2024-12-07 05:31] VITALS: BP 100/74
[2024-12-07 05:36] VITALS: BP 100/74; BMI 35.0
[2024-12-07 08:01] VITALS: BP 108/83
[2024-12-07] MEDS: PRADAXA 150 MG PO (08:27)
[2024-12-07] MEDS: TOPROL XL 25 MG PO (08:28)
--- NOTE | 2024-12-07 09:09 | W.PN.CD ---
Today's Communication / Plan
-
-Would give morning metoprolol and if patient continues to tolerate with stable BP then would discharge on Toprol and then as outpatient we will see if we can initiate low-dose lisinopril. Will have patient follow-up in the office later this week
-I discussed with the patient checking daily weights blood pressure and heart rate if he gains greater than 2 pounds in a day or 5 pounds in a week then he should call. Will give a prescription for Lasix 20 mg as needed shortness of breath or
weight gain. I told him that we do not expect it will have to use this if he has significant weight gain and shortness of breath as noted above he can take Lasix but also will need to call our office.Continue Eliquis.
Aspirin has been discontinued
Impression / Plan
-
AFIB with RVR: new
-back in sinus after DCCV
-now on Toprol
-CHADS2-VASC = 3. Dabigatran 150mg bid for OAC.
Cardiomyopathy, new, EF 20-25%
-recent stress with no ischemia
-likely tachy induced from A fib
-starting on Toprol XL
-meds will be limited by low BP and lack of prescription coverage
- Recommended no alcohol with combination of cardiomyopathy and A-fib
- Appears to be tolerating Toprol. Limitations to additional medical therapy including lower blood pressure and prescription coverage coverage
-Would give morning metoprolol and if patient continues to tolerate with stable BP then would discharge on Toprol and then as outpatient we will see if we can initiate low-dose lisinopril. Will have patient follow-up in the office later this week
-I discussed with the patient checking daily weights blood pressure and heart rate if he gains greater than 2 pounds in a day or 5 pounds in a week then he should call. Will give a prescription for Lasix 20 mg as needed shortness of breath or
weight gain. I told him that we do not expect it will have to use this if he has significant weight gain and shortness of breath as noted above he can take Lasix but also will need to call our office.
.
Pleural effusion. Will monitor for recurrence. Hopefully with judaism of sinus rhythm and control of heart rates we will have lower likelihood of reaccumulation.
.
Moderate MR
HTN: Previously on them amlodipine which has been discontinued patient will not be restarting amlodipine. Patient currently with relatively low blood pressure
Physical Exam
Vital Signs/Labs
Vital Signs
Temp Pulse Resp BP Pulse Ox
97.6 F 66 22 100/74 96
12/07/24 07:55 12/07/24 06:00 12/06/24 20:00 12/07/24 05:36 12/06/24 20:01
12/06/24 12/07/24 12/08/24
06:59 06:59 06:59
Actual Weight 120.5 kg 120.4 kg
12/07/24 03:24
12/07/24 03:24
PT Cancelled 12/04/24 19:10
INR Cancelled 12/04/24 19:10
APTT 82.7 Sec (23.4-35.0) H 12/06/24 06:07
Magnesium 2.1 mg/dl (1.6-2.3) 12/07/24 03:24
Triglycerides 100 mg/dl (10-149) 12/05/24 02:58
LDL Cholesterol, Calc 83 mg/dl 12/05/24 02:58
VLDL Cholesterol, Calc 20 mg/dl (0-30) 12/05/24 02:58
HDL Cholesterol 35 mg/dl 12/05/24 02:58
12/04/24
10:18
Zzn-I-Ubzclrgqqcn Pept 2800
LAB Results
12/04/24
10:18
Troponin I 0.015
Physical Exam
Constitutional: No acute distress
Cardiovascular: Pedal edema is absent
Respiratory: Respiratory effort normal
GI: Soft and Non tender
Neuro/Psych: Alert and Oriented
Data Reviewed
-
Date of Service: December 07, 2024
Medical Decision Making: Reviewed Test Results
Medical Tests (PFT, Pathology etc): Report Reviewed by me
Labs: Labs Reviewed by me
--- NOTE | 2024-12-07 11:56 | W.PN.HOSP.TC ---
Addendum entered and electronically signed by Aaron Eagle MD 12/07/24 15:34:
[id number]
Original Note:
Today's Communication/Plan
-
BB
Pradaxa
Lasix PRN
F/u CBC, CMP outpatient
f/u PCP, Cards outpatient
Stop CCB, ASA
Assessment / Plan
Assessment / Plan
Physical Exam
General: Well Developed, Well Nourished and No Apparent Distress
HEENT: NormoCephalic, Moist mucous membranes and Atraumatic
Respirator NAD
Cardiac: S1/S2, Irregular Rhythm and Tachycardia; No Murmur or Rub
GI: Soft, Non Tender, Non Distended and Normal Bowel Sounds; No Organomegaly
Rectal: Deferred by Provider
Musculoskeletal: No Clubbing, No Cyanosis and No Edema
Skin: No Rash
Neuro: Nonfocal/grossly intact
Psych: Calm and Intact Judgment/Insight
Afib with RVR
- Cardioversion 12/06
-s/p Dilt ggt
-Hep ggt - Pradaxa on DC - 150mg bid for OAC.
- Hold Amlodipine
- DC ASA
- TSH WNL
- ECHO - EF 25% - as per records - nuclear stress test negative
Moderate R pleural effusion
some adjacent airspace consolidation/atelectasis
Acute on Chronic HFrEF - EF 25%
-As per records - patient has known EF with nuclear stress test negative
-possibly related to tachycardia
-should benefit from repeat echo outpt
-Lights indicates most likely transudative effusion
-afebrile & normal WCC - low suspicion for PNAupon admission
- improved with thora
-Toprol
-Lasix PRN for weight gain or SOB
Currently borderline hypotension
Benign HTN
- HStop Amlodipine
Elevated Total bili
-mild, alp WNL
-no ruq pain
-most likely gilberts
-cont to trend
DVT Px: Pradaxa
More than 30 minutes spent in discharge including
Final examination of the patient
Summarizing hospital stay
Instructions for continuing care to all relevant caregivers
Preparation of discharge records, prescriptions, and referral forms
Total time spent (in minutes): 36
Anticipated Discharge: Today
Subjective/Interval History
-
Date of Service: December 07, 2024
no acute events, in sinus
Objective Data
-
Labs:
Laboratory Results
12/07/24
03:24
WBC 5.6
Hgb 14.0
Hct 41.8
Plt Count 245
Sodium 139
Potassium 4.1
Chloride 112 H
Carbon Dioxide 23
BUN 14
Creatinine 0.9
Glucose 110 H
Calcium 8.5
Total Bilirubin 1.3
AST 26
ALT 23
Alkaline Phosphatase 73
Vital Signs:
Vital Signs
Temp Pulse Resp BP Pulse Ox
97.6 F 65 22 108/83 96
12/07/24 07:55 12/07/24 10:00 12/06/24 20:00 12/07/24 08:01 12/07/24 08:00
I&O
12/06/24 12/07/24 12/08/24
06:59 06:59 06:59
Intake Total 562 / 562 200 / 200
Output Total 600 / 600
Balance -38 / -38 200 / 200
Review of Systems
-
History Source: Patient
All other systems: Not reviewed unless documented
Data Reviewed
-
Diagnostic Radiology: Report Reviewed by me
Labs: Labs Reviewed by me
--- NOTE | 2024-12-07 11:58 | W.DS.TRANS ---
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
-
Discharge Instructions:
Discharge Diagnosis/Procedures AFIB with RVR: new
Cardiomyopathy, new, EF 20-25%
Diet Low Fat,Low Cholesterol,Restrict fluids to 48 oz
Activity No strenuous activity,As tolerated
Blood Work cbc and cmp in 1 week with PCP
Others Tests ECHO as per cards in appx 4-8 weeks
Specialty Instructions Weigh Daily
Instructions:
Stand-Alone Forms:
Changes to Home Medications: Yes
Discharge Medications:
DC Medications w/original date entered in [facility]
tadalafil 5 mg tablet 5 mg PO DAILY 12/04/24
dabigatran etexilate 150 mg capsule (Pradaxa) 150 mg PO BID 30 days #60 caps 12/06/24
metoprolol succinate 25 mg tablet,extended release 24 hr 25 mg PO BID 30 days #60 tabs 12/06/24
furosemide 20 mg tablet (Lasix) 20 mg PO DAILY PRN Weight gain #20 tabs 12/07/24
Home Medication Changes
dabigatran etexilate 150 mg capsule (Pradaxa) 150 mg PO BID 30 days #60 caps 12/06/24
metoprolol succinate 25 mg tablet,extended release 24 hr 25 mg PO BID 30 days #60 tabs 12/06/24
furosemide 20 mg tablet (Lasix) 20 mg PO DAILY PRN Weight gain #20 tabs 12/07/24
Pending Results: No
[2024-12-07 12:00] VITALS: BP 110/80
== END 2024-12-07 14:00 | disposition home or self-care (01) | DRG 291 ==
LOC: IMU 13:02
PROVIDERS: Internal Medicine; Physician Assistant; Radiology Vascular & Interventional Radiology; ADMITTING PHYSICIAN Internal Medicine; ATTENDING PHYSICIAN Internal Medicine; CONSULT PHYSICIAN Internal Medicine Cardiovascular Disease; EMERGENCY PHYSICIAN Emergency Medicine; FAMILY PHYSICIAN Internal Medicine Geriatric Medicine
PROC: 0W993ZZ Drainage of Right Pleural Cavity, Percutaneous Approach (ICD-10-PCS; 2024-12-05)
PROC: 5A2204Z Restoration of Cardiac Rhythm, Single (ICD-10-PCS; 2024-12-06)
PROC: B24BZZ4 Ultrasonography of Heart with Aorta, Transesophageal (ICD-10-PCS; 2024-12-06)
DX: I11.0 Hypertensive heart disease with heart failure (principal); I50.23 Acute on chronic systolic (congestive) heart failure; J90 Pleural effusion, not elsewhere classified; J98.11 Atelectasis; I42.9 Cardiomyopathy, unspecified; I48.91 Unspecified atrial fibrillation; E80.6 Other disorders of bilirubin metabolism; I95.9 Hypotension, unspecified; Z87.891 Personal history of nicotine dependence; Z79.82 Long term (current) use of aspirin
CPT/HCPCS: 32555; 71045; 80048; 80053; 80061; 82150; 82248; 82945; 82947; 83615; 83735; 83880; 83986; 84155; 84157; 84443; 84478; 84484; 85014; 85025; 85027; 85610; 85730; 87015; 87070; 87205; 88112; 88305; 89051; 92960; 93005; 93306; 93312; 93320; 93325; Q9957

== ENCOUNTER 2024-12-23 19:01 | Inpatient (IN) | payer MEDICARE, SELFPAY ==
[2024-12-23] VITALS (10 sets, daily range): BP systolic 110–156; BP diastolic 82–121; BMI 34.1; BMI 34.0
--- NOTE | 2024-12-23 16:20 | ED.GENMED ---
History of Present Illness
General
Chief Complaint: Cardiac Symptoms
Time Seen by Provider: 12/23/24 16:20
History of Present Illness
History of Present Illness:
PAST MEDICAL HISTORY AND REVIEW OF OLD RECORDS
- The patient was admitted here nearly 3 weeks ago with new onset A-fib with RVR. He was also found to have an EF of 20 to 25%. He also had a thoracentesis related to a moderate-sized right pleural effusion. He was cardioverted on 12/06/2024. The
patient was started on Pradaxa.
Note:
CHIEF COMPLAINT(S)
Atrial fibrillation with elevated heart rate.
HISTORY OF PRESENT ILLNESS
The patient is a 68-year-old male with a history of atrial fibrillation. He was seen two weeks ago by Dr. Cisneros and previously had 1.9 liters of fluid drained from his right lung, which improved his breathing. Currently, he presents with
recurrent symptoms of atrial fibrillation identified by elevated heart rate, although he does not personally sense the elevation in heart rate. The foreclosure specialist plans to admit the patient for overnight observation and medical management to stabilize
the heart rate, with plans for electrical cardioversion ('zap') once stabilized. The patient reports feeling better from a respiratory standpoint presently.
EXTERNAL RECORDS REVIEWED
Previous records from Dr. Larson office were reviewed, which showed a recent visit two weeks ago.
PHYSICAL EXAM
General: Alert, no acute distress.
Skin: Warm, dry.
Head: Normocephalic, atraumatic.
Neck: Supple, trachea midline.
Eye Ears, Nose, Mouth and Throat: Oral mucosa moist.
Cardiovascular: Normal peripheral perfusion, trace lower extremity edema. Irregular rhythm, markedly tachycardic
Respiratory: Respirations are non-labored; auscultation does not suggest recurrence of previous pleural effusion. Breath sounds are clear and equal.
Gastrointestinal: Abdomen nondistended
Back: Normal range of motion, Normal alignment.
Musculoskeletal: Normal range of motion, normal strength.
Neurological: Alert and oriented to person, place, time, and situation, No focal neurological deficit observed.
Psychiatric: Cooperative, appropriate mood & affect.
PROBLEM LIST
- Acute: Atrial fibrillation with rapid ventricular response, elevated heart rate.
PLAN
- Admit to the hospital for overnight observation and stabilization of heart rate.
- Initiate medical management as per cardiologys guidance.
- Consider electrical cardioversion once the heart rate is adequately controlled.
- Obtain blood work.
- Communicate with the cardiology team for further management plan.
DIFFERENTIAL DIAGNOSIS
The Differential Diagnosis includes, in no particular order and is not limited to:
1. Atrial fibrillation with rapid ventricular response
2. Atypical atrial flutter
3. Paroxysmal supraventricular tachycardia (PSVT)
4. Multifocal atrial tachycardia
5. Acute myocardial ischemia
6. Congestive heart failure
7. Hyperthyroidism
8. Electrolyte imbalance
9. Pulmonary embolism
10. Cardiomyopathy
RADIOLOGY
- Chest x-ray obtained and I see no evidence of recurrence of pleural effusion
EKG
- A-fib, ventricular rate of 150, nonspecific ST normality, QTc 451 ms
LABS
- CBC unremarkable
UPDATE
-SUMMARY OF ENCOUNTER
The patient arrived at the emergency department presenting with rapid atrial fibrillation. A previous note from Dr. Maynard indicated a request to initiate the patient on amiodarone. After consultation, Dr. Márquez agreed with the administration of an
amiodarone bolus followed by a drip. The plan is to start the medication immediately with the intention of performing electrical cardioversion the following day.
DISPOSITION
Admit.
ASSESSMENT
Acute atrial fibrillation with rapid ventricular response.
EMERGENCY TREATMENTS ADMINISTERED
Amiodarone bolus and drip initiated.
MANAGEMENT OF THE PATIENTS CARE WAS DISCUSSED WITH
Discussion with Dr. Márquez regarding the management and administration of amiodarone.
PLAN
Admit the patient for overnight observation and stabilization with plans for electrical cardioversion once stabilized on medication.
INDEPENDENT REVIEW OF LABS AND INTERPRETATION OF TESTS
My independent review of the CBC is unremarkable.
MEDICAL DECISION MAKING
- Number and Complexity of Problems Addressed: Chronic conditions affecting care: History of atrial fibrillation. Differential diagnosis includes atrial fibrillation with rapid ventricular response, atypical atrial flutter, and hyperthyroidism.
- Data:
Category 1: Non-emergency department records reviewed from Dr. Merrill's office.
Category 3: Discussion of management with Dr. Márquez regarding initiation of amiodarone.
DIAGNOSIS
Atrial fibrillation with rapid ventricular response (ICD-10: I48.0).
Past History
Past History
ED Past Medical History: None
Social History
Tobacco: Non-smoker
Personal:
Living: with family
Employment: Employed
Phy Exam
Physical Exam
Physical Exam:
See HPI
Course
Orders/Labs/Results
Orders:
Orders
12/23/24 14:19
Electrocardiogram (*1) Urgent
Reason for Study: Atrial Fibrillation
EKG- Treatment ONCE
12/23/24 16:23
CR Chest - 2 Views Urgent
Comment:
Reason For Exam: sob eval for effusion
12/23/24 16:35
Amiodarone [Cordarone] 150 mg Dextrose 5%/Water 100 ml [D5w] 100 ml IV NOW
12/23/24 16:42
Basic Metabolic Panel Urgent
Complete Blood Count/With Diff Urgent
12/23/24 16:45
Amiodarone [Cordarone] 900 mg DEXTROSE 5% PVC-free BAG [D5W PVC-free BAG] 500 ml IV PER PROTOCOL
Initial Dose in mg/min:: 1
Duration of initial dose (hours):: 6
Subsequent dose in mg/min:: 0.5
Duration of subsequent dose (hours):: 18
Maximum dose in mg/min:: 1
Hold and notify provider if:: Heart rate < 60 BPM or SBP < 90 mmHg or MAP < 60 mmHg
12/24/24 Breakfast
NPO
Allow oral meds: Yes
Allow clear liquids: No
Abnormal Lab Results
12/23/24
16:42
MPV 10.8 H fL
(7.4-10.4)
Absolute Monos (auto) 0.7 H 10^3/uL
(0.1-0.6)
12/23/24 16:42
Vital Signs
Pulse: 150
Initial and Last Documented VS:
Initial Vital Signs
Temp Pulse Resp Pulse Ox
36.6 C 80 16 97
12/23/24 14:16 12/23/24 14:16 12/23/24 14:16 12/23/24 14:16
Last Documented Vital Signs
Temp Pulse Resp BP Pulse Ox
36.6 C 150 16 116/87 97
12/23/24 14:16 12/23/24 16:37 12/23/24 14:16 12/23/24 14:20 12/23/24 16:23
*Pulse Oximetry
SaO2: 97
Oxygen Mode of Delivery: Room air
Patient hypoxic: no
*Critical Care Note
Total Time (30-74mins, 75-104mins- exclusive of procedures): Not Applicable
ED Attending Note
-
Portions of this chart may have been created with voice recognition software.� Occasional wrong word or��sound alike� substitutions may have occurred due to the inherent limitations of voice recognition software.
Discharge Plan
Departure
Patient Disposition: Admit
Date of Disposition: 12/23/24
Time of Disposition: 16:36
Presentation/result/management discussed w/ accepting MD/DO: Hospitalist
Discharge Problem:
Atrial fibrillation with RVR
Prescriptions:
No Action
tadalafil 5 mg Tablet
5 mg PO DAILY
metoprolol succinate 25 mg Tablet Extended Release 24 Hr
25 mg PO BID 30 Days Qty: 60 0RF
dabigatran etexilate [Pradaxa] 150 mg Capsule
150 mg PO BID 30 Days Qty: 60 0RF
furosemide [Lasix] 20 mg tablet
20 mg PO DAILY PRN (Reason: Weight gain) Qty: 20 0RF
Rx Instructions:
shortness of breath or weight gain.
Interventions
Interventions:
*Risk Screen - Suicide Last Done: 12/23/24 14:19
*Neglect/Abuse Screening Last Done: 12/23/24 14:19
Discharge Date and Time
Print Language: NEPALI
[2024-12-23 16:48] LABS: Hematocrit 46.1 % (39.0-52.0); Hemoglobin 15.3 g/dL (13.0-18.0); Mean Corp Hgb Conc. 33.2 g/dL (33.0-37.0); Mean Corpuscular Volume 84.4 fL (80.0-94.0); Nucleated Red Blood Cells % 0 % (-); Platelet Count 359 10^3/uL (130-400); Red Cell Dist. Width 13.4 % (11.5-14.5)
--- NOTE | 2024-12-23 16:53 | W.PN.CD ---
Today's Communication / Plan
-
IV amiodarone
Continue Pradaxa
JOHN/CV tomorrow
Impression / Plan
-
68 y/o male with hypertension who recently came in to the hospital with SOB. He was diagnosed with new AFIB with RVR. CM was noted with EF 20-25%. He had a right pleural effusion had a thoracentesis for 1900 ml. He had a JOHN and CV on 12/06/24. He
was sent home on metoprolol and pradaxa. He saw Dr. Maynard in the office today and HR 150's back in AFIB, so was sent to ER. Full consult uploaded to chart.
AFIB with RVR: recurrent, persistent
-had JOHN and CV recently as noted, but back in AFIB with RVR. He does not feel it. Thinks he was in SR for about 5 days per his apple watch.
-on metoprolol- missed AM dose
-IV amiodarone being initiated- this requires intensive monitoring
-plan is CV tomorrow. Have to add on JOHN since he missed a dose of Pradaxa this AM. I have alerted nursing supervisor long goods regarding procedure since laborer demolition charge no longer on today.
-continue Pradaxa
Pleural effusion:
-recent thoracentesis and lungs clear and no SOB
-repeat CXR is pending for evaluation
Cardiomyopathy:
-EF 20-25% on transthoracic echo, 30-35% on JOHN
-recent diagnosis. As OP, he had nuclear stress test within past year with no evidence for ischemia or infarction. 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
-on BB, need to work on GDMT as able- OP note suggests BP limited GDMT so far. Reassess after rhythm control.
HFrEF:
-chronic, seems to be euvolemic
Moderate MR:
-monitor
HTN:
-BP was on low end last admit
-monitor with medicine adjustments
Physical Exam
Vital Signs/Labs
Vital Signs
Temp Pulse Resp BP Pulse Ox
97.8 F 150 16 116/87 97
12/23/24 14:16 12/23/24 16:37 12/23/24 14:16 12/23/24 14:20 12/23/24 16:23
12/22/24 12/23/24 12/24/24
06:59 06:59 06:59
Actual Weight 117.1 kg
12/23/24 16:42
Physical Exam
Constitutional: No acute distress
EENT: Anicteric
Cardiovascular: Rhythm/rate is irregular
Respiratory: Respiratory effort normal and Lungs clear to auscul.
Neuro/Psych: AO x 3
Data Reviewed
-
Date of Service: December 23, 2024
EKG: Tracing Personally Visualized and interpreted (AFIB with RVR) and Other
[2024-12-23 17:11] LABS: Blood Urea Nitrogen 18 mg/dl (9-20); Calcium 9.5 mg/dl (8.4-10.2); Carbon Dioxide 23 mmol/L (22-30); Chloride 107 mmol/L (98-107); Estimated Creatinine Clearance 105 ml/min; Glucose 110 mg/dl (70-99); Potassium 4.9 mmol/L (3.5-5.1); Sodium 138 mmol/L (135-145); eGFR > 60.00
--- NOTE | 2024-12-23 17:41 | HPS.HSE ---
Addendum entered and electronically signed by Duc Bazzi MD 12/23/24 18:25:
see update note for addendum
Addendum entered and electronically signed by SILVIA Vo 12/23/24 18:13:
Problem addendum
BPH
-Continue tadalafil 5 mg daily with hold parameters
Original Note:
Family Physician
-
Family Physician: Gregory Macias
Chief Complaint
-
Sent by office for A-fib with RVR
History of Present Illness
68-year-old male who went to his routine cardiology appointment today and was found to be in rapid A-fib heart rate 145 without any symptoms. He has history of recent diagnosis A-fib is on Pradaxa but has missed this a.m.'s dose. He denies fever,
chills, chest pain, palpitations, cough, shortness of breath, abdominal pain, nausea, vomiting, diarrhea, black stools. He reports having right knee replacement December 2023 and left knee replacement April 2020 for used to drink prior 2 glasses
of wine 3 to 4 days a week however stopped over the past month since new diagnosis of A-fib and on blood thinners. He had a recent admission on 2024 for right pleural effusion status postthoracentesis 1900 cc transudative, A-fib with RVR post
JOHN cardioversion and new diagnosis of nonischemic cardiomyopathy with EF 30-35% on JOHN
Past medical history HTN, A-fib with RVR status post JOHN cardioversion November 2024, nonischemic cardiomyopathy recent diagnosis November 2024 EF 20-25%, 30-35% on JOHN, right pleural effusion status postthoracentesis 12/05/2024 1900 cc transudative, chronic
elevated total bili due to Gilbert's
Medical History
Past Medical History
Past Medical History: Reports Other
Additional Past Medical History:
HTN,
A-fib with RVR status post JOHN cardioversion November 2024
nonischemic cardiomyopathy recent diagnosis November 2024 EF 20-25%, 30-35% on JOHN
right pleural effusion status postthoracentesis 12/05/2024 1900 cc transudative
chronic elevated total bili due to Gilbert's
Past Surgical History: Reports Other
Additional Past Surgical History:
Right knee replacement December 2023
Left knee replacement April 2024
Social History
Tobacco: Non-smoker
Alcohol: Former (Used to drink 2 glasses of wine 4 days a week stopped November 2024)
Drug: None
Living: With Family
Family History
Family History: Other (Mother early 60s lung cancer, smoker, father renal bladder cancer was identified as lung cancer early )
Allergies / Home Medications
Allergies reflects when Allergies were last updated in [facility].
Home Medications with original date entered in [facility]
Allergy/Medication List:
Allergies
Allergy/AdvReac Type Severity Reaction Status Date / Time
No Known Allergies Allergy Verified 10/13/13 15:36
Home Medications
tadalafil 5 mg tablet 5 mg PO DAILY 12/04/24
dabigatran etexilate 150 mg capsule (Pradaxa) 150 mg PO BID 30 days #60 caps 12/06/24
metoprolol succinate 25 mg tablet,extended release 24 hr 25 mg PO BID 30 days #60 tabs 12/06/24
Review of Systems
-
History Source: Patient
A 12 point ROS was completed and negative except as noted: Yes
Constitutional: Denies Fever or Chills
EENT: Denies Sore Throat or Runny Nose
Respiratory: Denies Cough or Trouble Breathing
Cardiac: Denies Chest Pain, Diaphoresis or Palpitations
Abdomen/GI: Denies Abdominal Pain, Nausea, Vomiting, Diarrhea, Constipated, Bloody Stools or Black Stools
: Denies Dysuria, Frequency, Flank Pain, Incontinence, Difficulty Voiding or Urgency
Musculoskeletal: Denies Joint Pain or Edema
Skin: Denies Itching or Rash
Neurological: Denies Dizzy, Headache or Weakness
Endocrine: Reports No Symptoms
Hematologic/Lymphatic: Reports No Symptoms
Psych: Reports Calm
Physical Exam
Vital Signs
Vital Signs
Temp Pulse Resp BP Pulse Ox
97.8 F 150 16 116/87 97
12/23/24 14:16 12/23/24 16:37 12/23/24 14:16 12/23/24 14:20 12/23/24 16:23
Physical Exam
General: No Pain, Fever, Chills or Sweats
HEENT: NormoCephalic, Anicteric, Moist mucous membranes, PERRLA, [place] Conjunctivae and No Ptosis
Respiratory: Clear; No Wheezes, Rales or Rhonchi
Cardiac: S1/S2 and Irregular Rhythm (A-fib RVR 145 bpm on monitor); No Murmur, Rub, Gallop or Peripheral Edema
Breast: Deferred by me
GI: Soft, Non Tender, Non Distended, Normal Bowel Sounds and No Hepatosplenomegaly
Rectal: Deferred by Provider
Genito-urinary: Deferred by me
Musculoskeletal: No Clubbing, No Cyanosis and No Edema
Skin: Warm and Dry; No Rash or Jaundice
Neuro: No Motor Deficits, Nonfocal/grossly intact, Cranial Nerves Intact and No Sensory Deficits; No Slurred Speech, Facial Droop, Tremors or Sedated
Psych: Calm
Laboratory Results
-
12/23/24 16:42
12/23/24 16:42
Data Reviewed
-
Diagnostic Radiology: Report Reviewed by me
Lab Data: Labs Reviewed by me
Impression/Plan
-
Impression/plan:
Admit to IVU
#A-fib with RVR
-Consult cardiology
- Patient missed 1 AM dose of Pradaxa in past 1 month new diagnosis
- Repeat JOHN prior JOHN/cardioversion EF 30-35%
-IV amiodarone gtt, continue Pradaxa
-Plan for cardioversion tomorrow add-on JOHN due to missed Pradaxa
#History of RIGHT pleural effusion
Recent thoracentesis�transudative 1900 cc 12/05/2024
CXR:Tiny right pleural effusion.
#Nonischemic cardiomyopathy-recent diagnosis November 2024
�EF 20-25%, 30-35% on JOHN
nuclear stress test within past year with no evidence for ischemia or infarction.
- Continue metoprolol succinate 25 mg twice daily
#Moderate MR
#HTN
BP 116/87
History of hypotension will monitor blood pressure on IV amiodarone and metoprolol
#Chronic elevated total bili most likely due to Gilbert's
DVT prophylaxis
Continue Pradaxa 150 mg p.o. twice daily
Full code
[2024-12-23] MEDS: CORDARONE 103 MG IV (17:53)
[2024-12-23] MEDS: CORDARONE 518 MG IV (18:17)
--- NOTE | 2024-12-23 18:25 | W.PN.UPDATE ---
Update Note
Progress Note Update
I saw and examined the patient.
The HRBP [place] note was reviewed and I agree with the note.
Comment: 68 y/o M hx of Afib s/p JOHN/CV in November 2024 returns from [facility] cardiology office today with rapid AFib HR in 140s. Patient asymptomatic. In ER, started on IV Amiodarine drip and planned for JOHN/CV in AM as patient missed a dose of Pradaxa
yesterday.
Exam:
General: No Pain, Fever, Chills or Sweats
HEENT: Normocephalic, Anicteric, Moist mucous membranes, PERRLA, [place] Conjunctivae and No Ptosis
Respiratory: Clear; No Wheezes, Rales or Rhonchi
Cardiac: S1/S2 and Irregular Rhythm (A-fib RVR 145 bpm on monitor); No Murmur, Rub, Gallop or Peripheral Edema
Breast: Deferred by me
GI: Soft, Non Tender, Non Distended, Normal Bowel Sounds and No Hepatosplenomegaly
Rectal: Deferred by Provider
Genito-urinary: Deferred by me
Musculoskeletal: No Clubbing, No Cyanosis and No Edema
Skin: Warm and Dry; No Rash or Jaundice
Neuro: No Motor Deficits, Nonfocal/grossly intact, Cranial Nerves Intact and No Sensory Deficits; No Slurred Speech, Facial Droop, Tremors or Sedated
Psych: Calm
Assessment: Admit to IVU. Start IV Amiodarone drip. NPO p MN for JOHN/CV in AM. Continue Pradaxa. [facility] cards consulted.
[2024-12-23] MEDS: TOPROL XL 25 MG PO (22:52)
[2024-12-23] MEDS: PRADAXA 150 MG PO (22:52)
--- NOTE | 2024-12-23 23:33 | PTCARENOTE ---
Patient admitted from ED. Ambulated to bed from stretcher, height and weight obtained. Admission completed. Patient denies chest pain or palpitations. Denies feeling lightheaded or dizzy. Patient AOx3, states that he 'feels like I could run a
marathon'. Afib on the monitor. Oxygen saturation on room air 98%. Amiodarone gtt infusing as ordered. Discussed NPO status at midnight. RH and LFA PIVs intact. Afib packet given. Patient oriented to room and unit. Call pope within reach. Care
ongoing.
[2024-12-24] VITALS (9 sets, daily range): BP systolic 98–122; BP diastolic 75–95; BMI 34.0
[2024-12-24 03:45] LABS: Hematocrit 42.4 % (39.0-52.0); Hemoglobin 13.8 g/dL (13.0-18.0); Mean Corp Hgb Conc. 32.5 g/dL (33.0-37.0); Mean Corpuscular Volume 84.8 fL (80.0-94.0); Nucleated Red Blood Cells % 0 % (-); Platelet Count 288 10^3/uL (130-400); Red Cell Dist. Width 13.2 % (11.5-14.5)
[2024-12-24 04:06] LABS: Blood Urea Nitrogen 21 mg/dl (9-20); Calcium 9.5 mg/dl (8.4-10.2); Carbon Dioxide 24 mmol/L (22-30); Chloride 107 mmol/L (98-107); Estimated Creatinine Clearance 105 ml/min; Glucose 107 mg/dl (70-99); Potassium 4.5 mmol/L (3.5-5.1); Sodium 138 mmol/L (135-145); eGFR > 60.00
--- NOTE | 2024-12-24 07:53 | W.PN.HOSP.TC ---
Today's Communication/Plan
-
see PN
Assessment / Plan
Assessment / Plan
68yo M with HTN, hearing impairment, Hx of joint replacement, recent admission for CHF, R transudative pleural effusion and new Afib with RVR 3 weeks ago s/p cardioversion on Pradaxa sent by flight deck officer to ED with recurrence of Afib with RVR.
A/P:
#Afib with RVR
Amio drip
COnt Pradaxa
Telemetry
Cardio consult: for JOHN/CV (patient missed pradaxa dose on the day of admission
Advised absolute abstinence from alcohol
repeat TSH with reflex
Patient without other complains, no signs of infection
#HFrEF, chronic
#Essential HTN
cont home meds
plan for GDMT - apparently was limited by blood pressure
DVT ppx pradaxa
Full code
I have spent at least 52min reviewing chart, test results, communication with consultants and providing direct patient care
Anticipated Discharge: 24 - 48 hours
Subjective/Interval History
-
Date of Service: December 24, 2024
Objective Data
-
Labs:
Laboratory Results
12/24/24
03:29
WBC 8.0
Hgb 13.8
Hct 42.4
Plt Count 288
Sodium 138
Potassium 4.5
Chloride 107
Carbon Dioxide 24
BUN 21 H
Creatinine 0.9
Glucose 107 H
Calcium 9.5
Vital Signs:
Vital Signs
Temp Pulse Resp BP Pulse Ox
98.0 F 96 18 115/95 96
12/24/24 03:21 12/24/24 06:00 12/24/24 03:21 12/24/24 03:24 12/24/24 03:21
Review of Systems
-
History Source: Patient
All other systems: Reviewed and negative
Physical Exam
-
General: No Apparent Distress
HEENT: Normocephalic and Atraumatic
Respiratory: Clear to Auscultation
Cardiac: Irregular Rhythm and Tachycardic
GI: Soft, Nontender and Nondistended
Musculoskeletal: No Clubbing, No Cyanosis and No Edema
[2024-12-24 08:30] LABS: ALT (SGPT) 18 U/L (0-50); AST (SGOT) 22 U/L (17-59); Albumin 3.8 g/dl (3.5-5.0); Alkaline Phosphatase 72 U/L (38-126); Total Protein 6.2 g/dl (6.3-8.2)
[2024-12-24] MEDS: PRADAXA 150 MG PO (09:18)
[2024-12-24] MEDS: TOPROL XL 25 MG PO (09:18)
[2024-12-24] MEDS: FLUSH (NSS) 1 FLUSH IV (09:18)
--- NOTE | 2024-12-24 09:55 | PTCARENOTE ---
Patient resting in bed this morning, IV amio infusing at 0.5mg/min via LFA #22, no redness or signs of infiltration. Report given to Melvin in EP, patient to have JOHN/CV later this morning. NPO, given meds with a sip of water.
--- NOTE | 2024-12-24 12:21 | W.PN.CD ---
Today's Communication / Plan
-
S/p successful JOHN/DCCV
Switch amiodarone to p.o. 400 mg twice daily until 01/07 then 200 mg daily
Continue Pradaxa
I will request follow-up with our office.
Impression / Plan
-
68 y/o male with hypertension who recently came in to the hospital with SOB. He was diagnosed with new AFIB with RVR. CM was noted with EF 20-25%. He had a right pleural effusion had a thoracentesis for 1900 ml. He had a JOHN and CV on 12/06/24. He
was sent home on metoprolol and pradaxa. He saw Dr. Maynard in the office today and HR 150's back in AFIB, so was sent to ER. Full consult uploaded to chart.
AFIB with RVR: recurrent, persistent
-had JOHN and CV recently, but back in AFIB with RVR. Asymptomatic. Thinks he was in SR for about 5 days per his apple watch.
-Switch amiodarone to p.o. 400 mg twice daily until 01/07 then 200 mg daily
-S/p JOHN/DCCV on 12/24/2024
-continue Pradaxa
Pleural effusion:
-recent thoracentesis and lungs clear and no SOB
-repeat CXR is pending for evaluation
Cardiomyopathy:
-EF 20-25% on transthoracic echo, 30-35% on JOHN
-recent diagnosis. As OP, he had nuclear stress test within past year with no evidence for ischemia or infarction. 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
-on BB, need to work on GDMT as able- OP note suggests BP limited GDMT so far. Reassess after rhythm control.
HFrEF:
-chronic, seems to be euvolemic
Moderate MR:
-monitor
HTN:
-BP was on low end last admit
-monitor with medicine adjustments
Physical Exam
Vital Signs/Labs
Vital Signs
Temp Pulse Resp BP Pulse Ox
98.5 F 121 18 115/95 97
12/24/24 08:13 12/24/24 08:13 12/24/24 08:13 12/24/24 03:24 12/24/24 08:13
12/23/24 12/24/24 12/25/24
06:59 06:59 06:59
Actual Weight 257 lb 7.999 oz
12/24/24 03:29
12/24/24 03:29
Physical Exam
Constitutional: No acute distress and Comfortable
Cardiovascular: Rhythm/rate is irregular, S1S2 is normal and Murmur/rub/gallop absent
Respiratory: Respiratory effort normal and Lungs clear to auscul.
Neuro/Psych: AO x 3
Data Reviewed
-
Date of Service: December 24, 2024
Medical Decision Making: Reviewed Test Results, Independent Historian Assessment, Test Interpretation and Review of Case with other Provider
EKG: Tracing Personally Visualized and interpreted
Echo: Tracing Personally Visualized and interpreted and Report Reviewed by me
Labs: Labs Reviewed by me
--- NOTE | 2024-12-24 12:53 | W.DCSUMMARY ---
Discharge Summary
Discharge Data
Date of Admission: 12/23/24
Date of Discharge: 12/24/24
-
Pending Results: No
Hospital Course
68yo M with HTN, hearing impairment, Hx of joint replacement, recent admission for CHF, R transudative pleural effusion and new Afib with RVR 3 weeks ago s/p cardioversion on Pradaxa sent by hematology supervisor to ED with recurrence of Afib with RVR. S/P
successful JOHN/CV on 12/24/24 and recommended Amiodarone 400mg BID until 01/07/25, then 200mg daily. Cardiology recomemnding d/c home. Patient medically stable for d/c
I have spent at least 52min reviewing chart, test results, communication with consultants and providing direct patient care
Patient was managed for:
#Afib with RVR
#HFrEF, chronic
#Essential HTN
Discharge Plan
-
Patient Disposition: Home (Routine Discharge)
Discharge Diagnosis/Procedures: Afib with RVR
Diet: Low Cholesterol
Driving Restrictions: As prior to admission
Referrals:
Gregory Mcaias MD [Family Provider, Internal Medicine]
Additional Discharge Medication Instructions: amiodarone 400 mg BID until 01/07 then 200 mg daily
Prescriptions:
New
amiodarone 200 mg tablet
200 mg PO DIRECTED Qty: 90 0RF
Rx Instructions:
Amiodarone 400mg BID until 01/07/25, then 200mg daily
Continued
tadalafil 5 mg Tablet
5 mg PO DAILY
metoprolol succinate 25 mg Tablet Extended Release 24 Hr
25 mg PO BID 30 Days Qty: 60 0RF
dabigatran etexilate [Pradaxa] 150 mg Capsule
150 mg PO BID 30 Days Qty: 60 0RF
Discharge Date and Time
Print Language: FIJIAN
--- NOTE | 2024-12-24 13:23 | PTCARENOTE ---
Patient returned from EP lab at 1245 after successful JOHN/CV. Patient is sitting oob in the chair, will d/c IV amiodarone and to start PO this evening. at the bedside, call pope in reach.
--- NOTE | 2024-12-24 14:51 | CM ---
pt is prev indep, lives with is in a 2 story home. no dc planning needs noted. plan is for dc to home with today.
--- NOTE | 2024-12-24 16:39 | PTCARENOTE ---
Patient cleared for discharge, remains in SR. Reviewed discharge instructions and dosage of amiodarone with tapering to daily 200mg on 01/07 and he states his understanding. Patient discharged home with his .
== END 2024-12-24 17:30 | disposition home or self-care (01) | DRG 309 ==
LOC: IVU 19:01
PROVIDERS: Clinical Nurse Specialist Family Health; Student in an Organized Health Care Education/Training Program; ADMITTING PHYSICIAN Internal Medicine; ATTENDING PHYSICIAN Internal Medicine; EMERGENCY PHYSICIAN Emergency Medicine; FAMILY PHYSICIAN Internal Medicine Geriatric Medicine
PROC: 5A2204Z Restoration of Cardiac Rhythm, Single (ICD-10-PCS; 2024-12-24)
PROC: B24BZZ4 Ultrasonography of Heart with Aorta, Transesophageal (ICD-10-PCS; 2024-12-24)
DX: I48.19 Other persistent atrial fibrillation (principal); I50.22 Chronic systolic (congestive) heart failure; I48.4 Atypical atrial flutter; E80.4 Gilbert syndrome; I47.10 Supraventricular tachycardia, unspecified; E05.90 Thyrotoxicosis, unspecified without thyrotoxic crisis or storm; N40.0 Benign prostatic hyperplasia without lower urinary tract symptoms; H91.90 Unspecified hearing loss, unspecified ear; I11.0 Hypertensive heart disease with heart failure; I42.8 Other cardiomyopathies; Z96.653 Presence of artificial knee joint, bilateral; Z86.711 Personal history of pulmonary embolism; Z80.52 Family history of malignant neoplasm of bladder; Z80.1 Family history of malignant neoplasm of trachea, bronchus and lung; Z79.01 Long term (current) use of anticoagulants
CPT/HCPCS: 71046; 80048; 80053; 82248; 84443; 85025; 92960; 93005; 93312; 93320; 93325; 99285

== ENCOUNTER → 2025-02-03 08:51 | Outpatient (REF) | payer MEDICARE, SELFPAY ==
[2025-02-03 10:11] LABS: ALT (SGPT) 14 U/L (0-50); AST (SGOT) 19 U/L (17-59); Albumin 4.4 g/dl (3.5-5.0); Alkaline Phosphatase 63 U/L (38-126); Blood Urea Nitrogen 21 mg/dl (9-20); Calcium 9.7 mg/dl (8.4-10.2); Carbon Dioxide 25 mmol/L (22-30); Chloride 107 mmol/L (98-107); Glucose 124 mg/dl (70-99); Potassium 5.0 mmol/L (3.5-5.1); Sodium 140 mmol/L (135-145); Total Protein 7.2 g/dl (6.3-8.2); eGFR > 60.00
[2025-02-03 10:25] LABS: Hematocrit 47.5 % (39.0-52.0); Hemoglobin 15.8 g/dL (13.0-18.0); Mean Corp Hgb Conc. 33.3 g/dL (33.0-37.0); Mean Corpuscular Volume 83.0 fL (80.0-94.0); Nucleated Red Blood Cells % 0 % (-); Platelet Count 328 10^3/uL (130-400); Red Cell Dist. Width 14.5 % (11.5-14.5)
== END ==
LOC: SDSPAT 08:51
PROVIDERS: ATTENDING PHYSICIAN Internal Medicine Cardiovascular Disease; FAMILY PHYSICIAN Internal Medicine Geriatric Medicine; OTHER PHYSICIAN Internal Medicine Cardiovascular Disease
DX: I48.0 Paroxysmal atrial fibrillation (principal)
CPT/HCPCS: 36415; 80053; 85025; 86850; 86900; 86901

== ENCOUNTER 2025-02-10 08:33 | Day surgery (SDC) | payer MEDICARE, SELFPAY ==
[2025-02-03 09:07] VITALS: BMI 35.7
[2025-02-10] VITALS (10 sets, daily range): BP systolic 77–103; BP diastolic 47–71
--- NOTE | 2025-02-10 10:50 | PTCARENOTE ---
Pt was brought to recovery room at 1045. He is AAOx4. VSS on monitor, IV patent. Denies discomfort or need for bathroom use. Updated on plan of care. Call pope in hand. Family notified of next level of care.
[2025-02-10 13:20] LABS: ACT-LR - POC 284 Seconds (116-155)
[2025-02-10 13:42] LABS: ACT-LR - POC 297 Seconds (116-155)
[2025-02-10 14:08] LABS: ACT-LR - POC 231 Seconds (116-155)
--- NOTE | 2025-02-10 14:45 | ITS.CL.ABL ---
[facility] - Ablation
Ablation
Procedure Report:
AFIB / A flutter ablation:
Mr. Morel is a very pleasant 69 yr old gentleman with medical history significant for severe systolic dysfunction with tachycardia and dilated cardiomyopathy symptomatic paroxysmal atrial fibrillation and atrial flutter is here in the EP lab for
atrial fibrillation / flutter ablation
Date of Procedure:
02/10/2025
Indications:
Symptomatic persistent atrial fibrillation / atrial flutters
Pre-Operative Diagnosis:
Persistent atrial fibrillation / atrial flutters
Post-Operative Diagnosis:
Persistent atrial fibrillation / atrial flutters
Procedure Performed:
Atrial fibrillation ablation with wide area circumferential ablation (WACA) approach for pulmonary vein isolation
Atrial flutter ablation with cavo-tricuspid isthmus line block formation
Posterior wall isolation
Anterior wall focal atrial tachycardia
Left atrial flutter � roof dependent ablation
Mitral isthmus ablation for ame-mitral flutter ablation
Performing Physician:
Nancy Shepard MD
Assistants:
EP staff
Anesthesia:
See anesthesia records
Detailed Description of the Procedure:
Written informed consent was obtained from the patient after a full explanation of the risks and benefits of the procedure including the risks of sedation and anesthesia.
The patient was brought to the electrophysiology laboratory in stable condition in fasting state. Continuous electrocardiographic and hemodynamic monitoring was initiated.
The initial rhythm was atrial fibrillation.
The procedure site was meticulously prepared with surgical scrub and allowed to dry with no pooling. Sterile draping was applied to cover the procedure site. The image intensifier was draped with sterile bag and positioned over the patient. After
infusion of local anesthetic, vascular access was obtained under ultrasound guidance and sheaths were placed over guide wire as detailed below.
The images of the ultrasound of the femoral vessels were stored in patient chart.
Sheath and Catheter Placement:
In the right femoral vein, an 8-English sheath was placed under ultrasound guidance for use during the ablation procedure. And mapping catheter was intermittently placed in the high right atrium, right ventricle, left atrium and left ventricle. In
the right femoral vein, a 9-Fr long sheath was placed for use during intracardiac echo procedure.
An arterial sheath was placed for hemodynamic monitoring due to his severe systolic dysfunction.
The sheaths were upgraded as needed during the case. Intracardiac catheters were positioned using direct fluoroscopic guidance.� ICE catheter was placed in RA. The following catheters / sheaths were placed
Sheaths:
��������� Agilis sheath in right femoral vein upgraded from 8Fr in right femoral vein
��������� 9Fr in right femoral vein
��������� 7Fr in right femoral vein
��������� 5Fr in right femoral artery
Catheters:
��������� The Affera Sphere 9 catheter -bidirectional D/F� - at locations of HRA, RV, LA and LV.
��������� ICE catheter -AccuNav -� at locations of RA, SVC, and RV.
��������� Bard decapolar catheter � RA and CS
Heparin was initiated after the access was obtained.
Cardioversion:
As patient was hemodynamically guarded, decision was made to get him in sinus rhythm before going for ablation. A 200 J shock was delivered via anatoly posterior Zoll pads and sinus rhythm was achived without any significant pause.
Intracardiac ECHO:
An 8-English AcuNav intracardiac ECHO (ICE) probe was advanced through the 9-English sheath in the left femoral vein into the right atrium under fluoroscopic and ICE ultrasound image guidance and a baseline ECHO study was performed. The left atrial
size was severely dilated. There was trace tricuspid regurgitation. The aortic valve was grossly normal. There was severely reduced l left ventricular systolic functions. There is no pericardial effusion. The KARLA has baseline normal velocities. The
pulmonary had good flow identified.
During the procedure, ICE was used for monitoring of complications, guidance of trans-septal puncture, monitor the catheter position and tracking ablation lesions. No change in the pericardial space noted throughout the procedure.
Electroanatomic mapping of the right atrium:
A J-tipped guidewire was advanced through the 8-English sheath in the right femoral vein into the superior vena cava under fluoroscopic and ICE guidance. The 8-English sheath was exchanged for an Agilis sheath which was advanced into the superior vena
cava.
Using the Sphere 9 Affera catheter advanced through Agilis sheath into the right atrium, an electroanatomic map (EAM) of the right atrium was created using the Vayyara� mapping system with Musicnotes software mapping system.
There was normal HV conduction noted at baseline at 45 ms.
Ablation # 1: Typical Atrial Flutter Ablation:
Patient had a hx of typical atrial flutter and plan was made to create atrial flutter ablation� before going for transseptal puncture.
The CTI ablation was done using radiofrequency then pulsed field with Affera sphere -9 ablation, open irrigation, force-sensing bidirectional ablation catheter in the cavotricuspid isthmus from the tricuspid annulus to the IVC ridge. �
The flutter terminated into sinus rhythm with ablation.
Once the ablation catheter reach near the IVC, the ablation energy was changed to pulsefield.
��������������� -Bidirectional block was confirmed across the CTI line with differential pacing.
��������������� -Double potentials were spaced greater than 98 msec apart.
��������������� -The conduction time across the CTI line from proximal CS pacing was 158 msec.
��������������� -EAM of the right atrium was obtained with coronary sinus pacing and showed a line of block at the CTI.
��������������� -The time interval just lateral to the ablation lesions was 158 msec and the lateral wall was 112 msec
��������������� - All these maneuvers confirmed the block at the CTI line.
- Post ablation HV interval was unchanged at 45msec
Then attention was given to atrial fibrillation ablation.
Trans-septal Puncture:
Heparin was initiated and infused to maintain appropriate ACT. A J-tipped guidewire was advanced through into the superior vena cava under fluoroscopic and ICE guidance. The Agilis sheath was advanced into the superior vena cava. An AcQCross
transseptal access system was utilized to perform the trans-septal puncture. The apparatus was withdrawn until it was in contact with the fossa ovalis. The position was adjusted based on fluoroscopy and ultrasound images from ICE. Under
fluoroscopic, hemodynamic and ICE ultrasound guidance, left atrium was cannulated by advancing the needle. Once atrial septum was cannulated, the needle was pulled back and the guide wire was advanced through the needle into the left atrium. The
guide wire was advanced into the left superior pulmonary vein. Both the sheath and the dilator was advanced into the left atrium. The dilator with the needle was withdrawn. Blood was aspirated from the Agilis sheath and arterial blood confirmed. The
sheath was flushed. Saline injection noted into the left atrium on ICE. The waveform of the LA pressure was recorded. The mapping catheter was advanced in the Agilis sheath into the left pulmonary vein.
3D Electroanatomic Mapping:
Using the Sphere 9 Affera catheter advanced through Agilis sheath into the left atrium, an electroanatomic map (EAM) of the left atrium was created using Vayyara� mapping system with Musicnotes software. The map was used for localization of catheter
position and tacking of ablation lesions.
The EAM of the left atrium showed a total of 4 PVs with two left and a two sided pulmonary veins. There was sporadic scarring noted in the LA. The posterior wall had scattered signals. There was a large areas of scar noted on the anterior wall with
severely fractionated signals on the anterior wall. The LA was severely dilated. �
Following the EAM, preparation were made for ablation.
Ablation:
Ablation # 2: Atrial fibrillation ablation - Pulmonary vein Isolation:
Pulsed field ablation was performed using an open irrigation, bidirectional, contact sensing, dual energy ablation catheter (Affera sphere -9) by completing the circumferential lesions around the left and right pulmonary veins achieving pulmonary
vein isolation.
All PVI were rechecked at the end of the case and remained isolated with dissociated and local capture with pacing. Entrance and exit block were demonstrated in all veins.
Ablation # 3: Roof line Formation:
With hx of atypical flutter and severely dilated left atrium, decision was made to create the roof line of block for roof dependent flutter and sever the roof component first.
A set of pulsed field ablations were placed on the roof line connecting the left superior pulmonary vein ablation lesions to the right superior pulmonary vein lesions rings.
Ablation # 4: Posterior wall isolation with the Box lesions set Formation:
There was a significant fractionation seen in the posterior wall and LA AF foci along with CFAE made it clear as the posterior wall is critical in maintaining the atrial fibrillation and the decision was made to isolate the posterior wall by
creating a �Box� lesions.
A set of Pulsed field ablations were placed on the floor line connecting the left inferior pulmonary vein ablation lesions to the right inferior pulmonary vein lesions rings.
The sphere 9 in the posterior wall showed entrance block and the pacing from the posterior wall showed no exit from the box lesions confirming the exit block.
Ablation # 5: Mitral isthmus ablation for ame-mitral flutter ablation
Mitral line was done for the mitral isthmus from the right anterior PV antrum to the anterior wall with ablation lesions and continued to the mitral annulus. The pulsed field ablations were placed at the isthmus and switched to radiofrequency once
close to the mitral annulus.
Confirmation of the PVI and bidirectional block:
Following achievement of entrance block at the pulmonary veins, pacing from the Sphere 9 affera catheter in each of the four veins at 20 milliamps for 4 milliseconds showed entrance and exit block.
The LA was mapped with The Vayyara� mapping system with nVoq-Medxnote software in sinus rhythm confirming the line of block at the ablation lesions lines.
The CTI block was again confirmed by pacing the prox CS and mapping the right atrium showing block at the CTI.
�The AV qian functions are deemed within normal range. The HV was normal.
All PVI were rechecked at the end of the case. Entrance and exit block were demonstrated.
Procedure End
ICE study was done again that showed no epicardial accumulation. No complications noted.
Following the completion of the EP study, catheters were removed. Protamine 40 mg was given at the end of the procedure and ACT was checked repeatedly. The sheaths were removed and hemostasis achieved with Figure of 8 suture and manual compression
after acceptable ACT is achieved.
Left atrial Pressure:
Mean LA pressure was 23mmHg
Estimated Blood loss:
<10 cc
Specimens Removed:
None.
Implants / Devices:
None
Urine output:
None
Packs / Drains/ Tubes:
None
Instrument / Sponge Count Correct:
Yes
Complications of the Procedure:
None
Condition of Patient at Time of Transfer:
Hemodynamically stable with no neurological or vascular compromise.
Summary:
��������� Successful atrial fibrillation ablation with circumferential bidirectional line of block at pulmonary venin antra (Pulmonary vein isolation), atrial flutter ablation with cavo-tricuspid isthmus line block formation, posterior wall
isolation, roof flutter ablation, mitral flutter ablation for ame-mitral flutter ablation
Figures from the Procedure:
Figure 1: The electroanatomic mapping (EAM) of the left atrium with bipolar voltage (purple indicates normal electrical activity with red as no myocardial muscle electric activity indicating a line of block or scar.
Pre
Post
Pst LAT
Pre LA
Post LA
--- NOTE | 2025-02-10 16:31 | W.PN.UPDATE ---
Update Note
Progress Note Update
Pt seen post PFA. Right groin site without ht/bleeding, non tender. Post EKG NSR 70s w/inferolateral TWI, as before, no acute changes. Resume pradaxa tonight at usual time, continue amiodarone as before. Followup at [facility] as scheduled. Home today if
groin site/tele remain stable.
== END 2025-02-10 18:47 | disposition home or self-care (01) ==
LOC: CATH 08:33
PROVIDERS: ATTENDING PHYSICIAN Internal Medicine Cardiovascular Disease; FAMILY PHYSICIAN Internal Medicine Geriatric Medicine; OTHER PHYSICIAN Internal Medicine Cardiovascular Disease
DX: I48.19 Other persistent atrial fibrillation (principal); I48.3 Typical atrial flutter; I08.3 Combined rheumatic disorders of mitral, aortic and tricuspid valves; I45.4 Nonspecific intraventricular block; I48.92 Unspecified atrial flutter; Z79.02 Long term (current) use of antithrombotics/antiplatelets; Z79.899 Other long term (current) drug therapy; I08.8 Other rheumatic multiple valve diseases
CPT/HCPCS: 93312; 93320; 93325; C1894; C1730; C1733; C1766; C1892; C1759; 85347; 86900; 86901; 93005; 93655; 93656; 93657